=== PATIENT | male | born 1985 | race African-American/Black ===

== ENCOUNTER 2021-02-19 21:51 | Emergency (ER) | payer MEDICAID ==
[~2021-02-19] VITALS: Ht 180.3 cm; Wt 82.0 kg
[2021-02-19] MEDS ORDERED: MORPHINE SULFATE 4 MG/ML CPJ (NOT FOR IM USE) IV STA (23:19)
[2021-02-19] MEDS ORDERED: ONDANSETRON HCL 4MG/2ML INJ IV STA (23:19)
[2021-02-19] MEDS ORDERED: LEVETIRACETAM 1000MG PREMIX 100 ML IV ONE (23:30)
[2021-02-19] MEDS ORDERED: LORAZEPAM 2MG/ML CPJ IV ONE (23:30)
[2021-02-19] MEDS ORDERED: MAGNESIUM 2 G PREMIX 50 ML IV ONE (23:30)
[2021-02-19] MEDS ORDERED: FOLIC ACID 1 MG, THIAMINE HCL 100 MG, MVI, ADULT NO.1 10 ML in DEXTROSE 5% WATER 1,000 ML IV ONE (23:30)
[2021-02-20 01:38] LABS: BASOPHILS % 0.5 % (0.0-2.0); EOSINOPHILS % 0.1 % (0.0-5.0); HEMATOCRIT. 33.6 % (42.0-52.0); HEMOGLOBIN. 11.3 g/dL (14.0-18.0); LYMPHOCYTES % 17.5 % (20.0-50.0); MEAN CORPUSCULAR HEMOGLOBIN 27.4 pg (28.0-32.0); MEAN CORPUSCULAR VOLUME 81.2 fL (80.0-94.0); MONOCYTES % 9.7 % (2.0-8.0); NEUTROPHILS % 72.2 % (40.0-76.0); RED BLOOD CELL COUNT 4.13 mill/uL (4.7-6.1); RED CELL DISTRIBUTION WIDTH 16.5 % (11.6-14.6)
[2021-02-20 01:39] LABS: CHLORIDE 102 mEq/L (98-107)
[2021-02-20] MEDS ORDERED: POTASSIUM CHLORIDE 20MEQ TABLET SR PO ONE (02:15)
[2021-02-20 02:30] LABS: MEAN PLATELET VOLUME 9.5 fl (7.4-10.4); PLATELET 59 x1000/uL (130-400)
[2021-02-20] MEDS ORDERED: IBUP-2028 MT (03:40)
[2021-02-20] MEDS ORDERED: KEPP500 MT (03:40)
[2021-02-20 04:30] VITALS: BP 109/51
== END 2021-02-20 05:36 | disposition home or self-care (01) ==
LOC: ER 21:51
DX: S42.291A Other displaced fracture of upper end of right humerus, initial encounter for closed fracture (principal); G40.909 Epilepsy, unspecified, not intractable, without status epilepticus; K70.30 Alcoholic cirrhosis of liver without ascites; R00.0 Tachycardia, unspecified; X58.XXXA Exposure to other specified factors, initial encounter; Y93.89 Activity, other specified; Y92.018 Other place in single-family (private) house as the place of occurrence of the external cause
CPT/HCPCS: 36415; 70450; 71045; 73030; 73060; 80053; 85025; 93005; 96365; 96366; 96368; 96375; 99291; J1953; J2060; J2270; J2405; J3411; J3475; J3490; J7070